=== PATIENT | female | born 1950 | race African-American/Black ===

== ENCOUNTER 2019-03-08 08:34 | Inpatient (IN) | payer BC, MEDICARE ==
[~2019-03-08] VITALS: Ht 165.1 cm; Wt 92.5 kg
[~2019-03-08 08:34] MED LIST: ALBU2.5V13; P20 PO; PRED10TA PO; PRED30TA4; PRED5TAB PO
[2019-03-08] MEDS ORDERED: METHYLPREDNISOLONE SOD SUCC 125 MG/2 ML VIAL IV STA (08:55)
[2019-03-08] MEDS ORDERED: IPRATROPIUM BROMIDE (0.02%) 0.5MG/2.5ML NEB HHN STA (08:55)
[2019-03-08] MEDS ORDERED: ALBUTEROL (0.083%) 2.5MG/3ML NEB HHN STA (08:55)
[2019-03-08] MEDS ORDERED: MAGNESIUM 2 G PREMIX 50 ML IV ONE (09:15)
[2019-03-08 10:00] LABS: BASOPHILS % 0.5 % (0.0-2.0); EOSINOPHILS % 4.8 % (0.0-5.0); HEMOGLOBIN. 13.4 g/dL (12.0-16.0); LYMPHOCYTES % 24.2 % (20.0-50.0); MEAN CORPUSCULAR HEMOGLOBIN 28.7 pg (28.0-32.0); MEAN CORPUSCULAR VOLUME 85.9 fL (81.0-99.0); MEAN PLATELET VOLUME 8.5 fl (7.4-10.4); MONOCYTES % 3.9 % (2.0-8.0); NEUTROPHILS % 66.6 % (40.0-76.0); PLATELET 223 x1000/uL (130-400); RED BLOOD CELL COUNT 4.65 mill/uL (4.2-5.4); RED CELL DISTRIBUTION WIDTH 13.6 % (11.6-14.6)
[2019-03-08 10:06] LABS: CHLORIDE 108 mEq/L (98-107)
[2019-03-08] MEDS ORDERED: METF100P3 PO (14:05)
[2019-03-08] MEDS ORDERED: FLUT1DIS3 INH (14:05)
[2019-03-08] MEDS ORDERED: AMLO5TAB4 PO (14:05)
[2019-03-08] MEDS ORDERED: MONT5TAB13 PO (14:05)
[2019-03-08] MEDS ORDERED: PRED5POW11 PO (14:05)
[2019-03-08 14:16] VITALS: BP 149/82
[2019-03-08 16:00] VITALS: BP 145/61
[2019-03-08 17:56] VITALS: BP 125/66
[2019-03-08] MEDS ORDERED: TEMAZEPAM 15MG CAPSULE PO PRN (18:15)
[2019-03-08] MEDS ORDERED: DEXTROSE 50% WATER 50ML SYRINGE IV PRN (18:15)
[2019-03-08] MEDS ORDERED: TRAMADOL HCL/ACETAMINOPHEN 37.5/325MG TABLET PO PRN (18:15)
[2019-03-08] MEDS ORDERED: CLONIDINE 0.1MG TABLET PO PRN (18:15)
[2019-03-08] MEDS ORDERED: LORAZEPAM 0.5MG TABLET PO PRN (18:15)
[2019-03-08] MEDS ORDERED: MAGNESIUM/ALUMINUM HYDROXIDE/SIMETHICONE 30ML UDC PO PRN (18:15)
[2019-03-08] MEDS ORDERED: ONDANSETRON HCL 4MG/2ML INJ IV PRN (18:15)
[2019-03-08] MEDS ORDERED: DIPHENHYDRAMINE 50MG/ML VIAL IV PRN (18:15)
[2019-03-08] MEDS ORDERED: IPRATROPIUM/ALBUTEROL 0.5-3(2.5)MG/3ML NEB NEB PRN (18:15)
[2019-03-08] MEDS ORDERED: ACETAMINOPHEN 325MG TABLET PO PRN (18:15)
[2019-03-08] MEDS ORDERED: MAGNESIUM HYDROXIDE 400MG/5ML 30ML UDC PO PRN (18:30)
[2019-03-08] MEDS ORDERED: POTASSIUM CHLORIDE 20MEQ TABLET SR PO NR (18:45)
[2019-03-08] MEDS: INSULIN LISPRO 100 UNITS/ML SUBCUT SCH ×2 (18:47→21:07)
[2019-03-08 20:00] VITALS: BP 125/65
[2019-03-08] MEDS: IPRATROPIUM/ALBUTEROL 0.5-3(2.5)MG/3ML NEB HHN SCH (20:33)
[2019-03-08] MEDS: OMEPRAZOLE 20MG CAPSULE EXTENDED RELEASE PO SCH (20:54)
[2019-03-08] MEDS: BLOOD SUGAR DIAGNOSTIC STRIP TEST SCH (20:55)
[2019-03-08 22:00] VITALS: BP 110/57
[2019-03-08] MEDS: SODIUM CHLORIDE 0.9% INJ 3ML FLUSH IVF SCH (22:00)
[2019-03-09] VITALS (8 sets, daily range): BP systolic 107–136; BP diastolic 54–75
[2019-03-09] MEDS: IPRATROPIUM/ALBUTEROL 0.5-3(2.5)MG/3ML NEB HHN SCH ×3 (02:57→13:05)
[2019-03-09] MEDS: SODIUM CHLORIDE 0.9% INJ 3ML FLUSH IVF SCH (06:14)
[2019-03-09] MEDS: OMEPRAZOLE 20MG CAPSULE EXTENDED RELEASE PO SCH (06:15)
[2019-03-09] MEDS: BLOOD SUGAR DIAGNOSTIC STRIP TEST SCH ×2 (07:30→12:16)
[2019-03-09] MEDS ORDERED: METFORMIN HCL 500MG TABLET PO SCH (08:00)
[2019-03-09] MEDS: INSULIN LISPRO 100 UNITS/ML SUBCUT SCH ×2 (08:00→12:16)
[2019-03-09] MEDS ORDERED: LORATADINE 10MG TABLET PO SCH (09:00)
[2019-03-09] MEDS ORDERED: AMLODIPINE 10MG TABLET PO SCH (09:00)
== END 2019-03-09 15:05 | disposition home or self-care (01) | DRG 190 ==
LOC: ER 08:34 → EDBEDREQ 12:48 → EDBEDREQTM 12:48 → ENRESERV 12:54 → 5EST 13:48
PROVIDERS: ADMIT Internal Medicine; ATTEND Internal Medicine
PROC: 5A09357 Assistance with Respiratory Ventilation, Less than 24 Consecutive Hours, Continuous Positive Airway Pressure (ICD-10-PCS; principal; 2019-03-08)
DX: J44.1 Chronic obstructive pulmonary disease with (acute) exacerbation (principal); J96.90 Respiratory failure, unspecified, unspecified whether with hypoxia or hypercapnia; E11.9 Type 2 diabetes mellitus without complications; I10 Essential (primary) hypertension; J98.01 Acute bronchospasm; M16.12 Unilateral primary osteoarthritis, left hip; Z88.6 Allergy status to analgesic agent; Z90.710 Acquired absence of both cervix and uterus; Z98.891 History of uterine scar from previous surgery; Z88.0 Allergy status to penicillin; Z88.8 Allergy status to other drugs, medicaments and biological substances; Z79.899 Other long term (current) drug therapy; Z79.84 Long term (current) use of oral hypoglycemic drugs
CPT/HCPCS: 36415; 71045; 82962; 83880; 84484; 93005; 94640; 94644; 94660; 96365; 96366; 99291; J1815; J3475; J7611; J7620